=== PATIENT | female | born 1995 | race Caucasian/White ===

== ENCOUNTER 2023-04-14 10:50 | Outpatient (CLI) | payer OTHER, SELFPAY | END 2023-04-14 10:51 | disposition home or self-care (01) | LOC: INJ CL 10:53 | PROVIDERS: Visit Provider Family Medicine | DX: M54.16 Radiculopathy, lumbar region (principal) | CPT/HCPCS: 62323; J1100; Q9966 ==

== ENCOUNTER 2023-07-07 08:04 | Outpatient (CLI) | payer OTHER, SELFPAY | END 2023-07-07 08:05 | disposition home or self-care (01) | LOC: INJ CL 08:05 | PROVIDERS: Visit Provider Family Medicine | DX: M54.16 Radiculopathy, lumbar region (principal) | CPT/HCPCS: 64483; J1100; Q9966 ==